=== PATIENT | female | born 1965 | race Caucasian/White ===

== ENCOUNTER 2019-08-04 08:53 | Emergency (ER) | payer OTHER ==
[2019-08-04 09:07] VITALS: BP 124/81
--- NOTE | 2019-08-04 09:10 | UC ---
Head Injury HPI - HPI Summary HPI Summary: The patient is a 53-year-old female who is doing housework 4 days ago when a shelf tipped and struck her in the forehead. She denies any loss of consciousness. In fact the injury was not particularly painful at all. She started having a headache later that day. Since then she has noticed a daily increase in the severity of her headache. She has photo and phonophobia. She has had nausea but no vomiting. She has disequilibrium. She has had trouble working at a computer and concentrating. She has been sleeping more than normal. She has had 2 concussions in the past. - History Of Current Complaint Chief Complaint: UCHeadInjury Stated Complaint: HEADACHE, HIT HEAD FRIDAY Time Seen by Provider: 08/04/19 09:09 Hx Obtained From: Patient Hx Last Menstrual Period: rare Onset/Duration: Sudden Onset, Lasting Days Severity Currently: Mild Severity Initially: Moderate Pain Intensity: 7 Pain Scale Used: 0-10 Numeric Character: Throbbing, Pressure Aggravating Factor(s): Nothing Alleviating Factor(s): Nothing Associated Signs And Symptoms: Positive: Nausea. Negative: LOC (Time In Secs./ Mins/Hrs), LOC Duration Unknown, Confusion, Memory Loss, Seizure, Epistaxis, Dental Malocclusion, Neck Pain, Vomiting - Allergies/Home Medications Allergies/Adverse Reactions: Allergies Allergy/AdvReac Type Severity Reaction Status Date / Time erythromycin base AdvReac Nausea Verified 08/04/19 09:09 Home Medications: Home Medications Acetaminophen [Tylenol] 325 mg PO PRN 08/04/19 [History] PMH/Surg Hx/FS Hx/Imm Hx Previously Healthy: Yes - Surgical History Surgical History: None - Family History Known Family History: Negative: Diabetes, Blood Disorder - Social History Alcohol Use: Weekly Alcohol Amount: weekends Substance Use Type: None Smoking Status (MU): Never Smoked Tobacco Review of Systems All Other Systems Reviewed And Are Negative: Yes Constitutional: Positive: Negative Skin: Positive: Negative Eyes: Positive: Negative ENT: Positive: Negative Respiratory: Positive: Negative Cardiovascular: Positive: Negative Gastrointestinal: Positive: Negative Genitourinary: Positive: Negative Motor: Positive: Negative Neurovascular: Positive: Negative Musculoskeletal: Positive: Negative Neurological: Positive: Headache Psychological: Positive: Negative Physical Exam Triage Information Reviewed: Yes Appearance: Well-Appearing, No Pain Distress, Well-Nourished Vital Signs: Initial Vital Signs Temp 98.5 F 08/04/19 09:01 Pulse 74 08/04/19 09:01 Resp 16 08/04/19 09:01 BP 124/81 08/04/19 09:01 Pulse Ox 97 08/04/19 09:01 Vital Signs Reviewed: Yes Eyes: Positive: Conjunctiva Clear, Other: - EOMI/PERRL ENT: Positive: Hearing grossly normal, Pharynx normal, TMs normal, Uvula midline , Other - no csf jeffrey/rhinorrhea. Negative: Nasal congestion, Nasal drainage, Tonsillar swelling, Tonsillar exudate, Trismus, Muffled voice, Hoarse voice, Sinus tenderness Dental Exam: Normal Neck: Positive: Supple, Nontender Respiratory: Positive: Lungs clear, Normal breath sounds, No respiratory distress, No accessory muscle use Cardiovascular: Positive: RRR, No Murmur Abdomen Description: Positive: Nontender, No Organomegaly Musculoskeletal: Positive: ROM Intact, No Edema Neurological: Positive: Alert Psychological Exam: Normal Skin Exam: Normal - Additional Comments Neurologic exam her GCS is 15 out of 15. Her cranial nerves II through XII are intact. Her strength is 5 out of 5. Her DTRs are brisk and symmetrical. She has a negative Romberg. Diagnostics - Radiology No standard instances Radiology Interpretation Completed By: Radiologist Summary of Radiographic Findings: CT brain negative Head Injury Course/Dx - Differential Dx/Diagnosis Provider Diagnosis: Concussion without loss of consciousness Discharge ED - Sign-Out/Discharge Documenting (check all that apply): Patient Departure All imaging exams completed and their final reports reviewed: Yes - Discharge Plan Condition: Critical Disposition: HOME Patient Education Materials: Concussion (ED) Forms: *Work Release Referrals: Radha Velasquez MD [Primary Care Provider] - 5 Days Additional Instructions: rest /physical and mental ice tylenol - Billing Disposition and Condition Condition: CRITICAL Disposition: Home
== END 2019-08-04 10:16 | disposition home or self-care (01) ==
LOC: UCEAST 08:53
DX: S06.0X0A Concussion without loss of consciousness, initial encounter (principal); Z88.1 Allergy status to other antibiotic agents; W22.09XA Striking against other stationary object, initial encounter; Y92.009 Unspecified place in unspecified non-institutional (private) residence as the place of occurrence of the external cause
CPT/HCPCS: 70450; 99211; G0463